=== PATIENT | male | born 1995 | race Caucasian/White ===

== ENCOUNTER 2017-04-25 16:29 | Emergency (ER) | payer SELFPAY ==
[~2017-04-25] VITALS: Ht 157.5 cm; Wt 57.0 kg
[2017-04-25 16:37] VITALS: Ht 157.5 cm; Wt 57.0 kg
== END 2017-04-25 17:35 | disposition left against medical advice (07) ==
LOC: FTE 16:29
DX: Z53.21 Procedure and treatment not carried out due to patient leaving prior to being seen by health care provider (principal)